=== PATIENT | female | born 1995 | race Caucasian/White ===

== ENCOUNTER 2021-03-07 19:05 | Outpatient (CLI) | payer OTHER ==
[2021-03-07 21:02] LABS: HEMOGLOBIN 11.4 gm/dl (12.3-15.3); RED BLOOD COUNT 4.4 M/UL (4.00-5.10); WHITE BLOOD COUNT 13.1 K/UL (4.5-11.0)
[2021-03-07 21:16] LABS: BUN/CREATININE RATIO 21 (0-10)
== END 2021-03-08 00:39 | disposition home or self-care (01) ==
LOC: GENOP 19:05
PROVIDERS: Obstetrics & Gynecology
DX: O12.03 Gestational edema, third trimester (principal); O99.891 Other specified diseases and conditions complicating pregnancy; R25.2 Cramp and spasm; O36.5930 Maternal care for other known or suspected poor fetal growth, third trimester, not applicable or unspecified; O62.9 Abnormality of forces of labor, unspecified; Z3A.36 36 weeks gestation of pregnancy; O99.343 Other mental disorders complicating pregnancy, third trimester; F41.9 Anxiety disorder, unspecified; O99.613 Diseases of the digestive system complicating pregnancy, third trimester; K59.09 Other constipation; Z20.822 Contact with and (suspected) exposure to COVID-19
CPT/HCPCS: 36415; 80048; 81001; 85025; G0463; U0002

== ENCOUNTER 2021-03-11 18:05 | Inpatient (IN) | payer OTHER ==
[~2021-03-11] VITALS: Ht 154.9 cm; Wt 73.9 kg
[2021-03-11 19:09] LABS: HEMOGLOBIN 11.1 gm/dl (12.3-15.3); RED BLOOD COUNT 4.33 M/UL (4.00-5.10); WHITE BLOOD COUNT 10.5 K/UL (4.5-11.0)
[2021-03-12] MEDS ORDERED: COLACE100 MG PO (13:21)
[2021-03-12] MEDS ORDERED: IBUPROFEN800 MG PO (13:21)
[2021-03-13 05:44] LABS: HEMOGLOBIN 10.2 gm/dl (12.3-15.3)
== END 2021-03-13 17:46 | disposition home or self-care (01) | DRG 806 ==
LOC: GENOP 18:05 → OB 03-12 01:48
PROVIDERS: Obstetrics & Gynecology; ADMIT Obstetrics & Gynecology
PROC: 10E0XZZ Delivery of Products of Conception, External Approach (ICD-10-PCS; principal; 2021-03-11)
PROC: 4A1HXCZ Monitoring of Products of Conception, Cardiac Rate, External Approach (ICD-10-PCS; 2021-03-11)
PROC: 10907ZC Drainage of Amniotic Fluid, Therapeutic from Products of Conception, Via Natural or Artificial Opening (ICD-10-PCS; 2021-03-11)
PROC: 3E033VJ Introduction of Other Hormone into Peripheral Vein, Percutaneous Approach (ICD-10-PCS; 2021-03-11)
DX: O36.5930 Maternal care for other known or suspected poor fetal growth, third trimester, not applicable or unspecified (principal); O22.43 Hemorrhoids in pregnancy, third trimester; Z37.0 Single live birth; O99.344 Other mental disorders complicating childbirth; O76 Abnormality in fetal heart rate and rhythm complicating labor and delivery; Z3A.37 37 weeks gestation of pregnancy; F41.9 Anxiety disorder, unspecified; Z20.822 Contact with and (suspected) exposure to COVID-19; K59.09 Other constipation; O99.62 Diseases of the digestive system complicating childbirth
CPT/HCPCS: 36415; 80307; 81001; 85014; 85018; 85025; 90707; 94760; J2590; U0002

== ENCOUNTER 2021-06-11 14:14 | Emergency (ER) | payer OTHER ==
[~2021-06-11 14:14] MED LIST: COLACE100 MG PO; IBUPROFEN800 MG PO
== END 2021-06-11 15:34 | disposition home or self-care (01) ==
LOC: ER1 14:14
DX: S61.011A Laceration without foreign body of right thumb without damage to nail, initial encounter (principal); W31.89XA Contact with other specified machinery, initial encounter; Y92.69 Other specified industrial and construction area as the place of occurrence of the external cause; Y99.0 Civilian activity done for income or pay
CPT/HCPCS: 12001; 73130; 99283